=== PATIENT | male | born 1990 ===

== ENCOUNTER 2018-11-09 21:21 | Emergency (ER) | payer SELFPAY ==
[2018-11-09 21:33] VITALS: RESP 18
--- NOTE | 2018-11-09 22:15 | ED PDOC ---
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 Patient states he was doing some heavy lifting at work and felt immediate pain to lower ribs with swelling. Patient states he was evaluated by the doctor at his job and prescribed Naproxen and Flexeril which he states he took and did not help. Pain worse with deep breaths. Denies nausea/vomiting, cough, shortness of breath, palpitations, abdominal pain. Past Medical History Reviewed: Historical Data, Nursing Documentation, Vital Signs Vital Signs: Last Vital Signs Temp 98.4 F 11/09/18 21:29 Pulse 69 11/09/18 21:29 Resp 18 11/09/18 21:29 BP 136/76 11/09/18 21:29 Pulse Ox 100 11/09/18 21:29 - Medical History PMH: No Chronic Diseases - Surgical History Surgical History: No Surg Hx - Family History Family History: States: No Known Family Hx - Home Medications Home Medications: Ambulatory Orders Medication Instructions Recorded oxyCODONE/Acetaminophen [Percocet 1 ea PO Q6 PRN #12 tab 11/10/18 5/325 mg Tab] - Allergies Allergies/Adverse Reactions: Allergies Allergy/AdvReac Type Severity Reaction Status Date / Time No Known Allergies Allergy Verified 11/09/18 21:29 Review of Systems ROS Statement: Except As Marked, All Systems Reviewed And Found Negative Musculoskeletal: Positive for: Other (rib pain) Physical Exam - Reviewed Nursing Documentation Reviewed: Yes Vital Signs Reviewed: Yes - Physical Exam Appears: Positive for: Well, Non-toxic, Uncomfortable Head Exam: Positive for: ATRAUMATIC, NORMAL INSPECTION, NORMOCEPHALIC Cardiovascular/Chest: Positive for: Regular Rate, Rhythm. Negative for: Chest Non Tender (tender to palpate left anterior inferior ribs; no edema, ecchymosis, flail chest noted) Respiratory: Positive for: Normal Breath Sounds Gastrointestinal/Abdominal: Positive for: Normal Exam, Bowel Sounds, Soft. Negative for: Tenderness Back: Positive for: Normal Inspection Extremity: Positive for: Normal ROM Neurologic/Psych: Positive for: Alert, Oriented (x3) - ECG O2 Sat by Pulse Oximetry: 100 - Other Rad xray left ribs/chest X-Ray: Viewed By Me, Read By Radiologist X-Ray Interpretation: left 6th rib fx - Progress ED Course And Treament: -Toradol IM -Percocet PO -left chest/ribs Patient educated on findings (via [employer] preboarder #[id number]), discharged with rx Percocet Incentive spirometer given with instructions on use by Respiratory therapist Advised follow up PMD within 2-3 days Return precautions given Disposition - Clinical Impression Clinical Impression: Left rib fracture - Patient ED Disposition Is Patient to be Admitted: No Counseled Patient/Family Regarding: Studies Performed, Diagnosis, Need For F ollowup, Rx Given - Disposition Referrals: [facility] [Outside] Disposition: Routine/Home Disposition Time: 00:07 Condition: IMPROVED Prescriptions: oxyCODONE/Acetaminophen [Percocet 5/325 mg Tab] 1 ea PO Q6 PRN #12 tab PRN Reason: Pain, Severe (8-10) Instructions: Rib Fractures in Adults Forms: [employer] ([place]), [facility] ED School/Work Excuse Print Language: UKRAINIAN
[2018-11-09] MEDS ORDERED: Oxycodone/Acetaminophen 5/325 mg Tab ONE (22:35)
[2018-11-09] MEDS: Oxycodone/Acetaminophen 5/325 mg Tab PO ONE (22:35)
[2018-11-10 01:07] VITALS: BP 118/82; PULSE 61; TEMP 97.8; O2SAT 97
--- NOTE | 2018-11-10 16:54 | RAD ---
Date of service: 11/09/2018 PROCEDURE: Radiographs of the Chest and Left Ribs. HISTORY: left rib pain, SOB COMPARISON: None available. TECHNIQUE: Frontal radiograph of the chest and multiple oblique radiographs of the left ribs were obtained. FINDINGS: LEFT RIBS: No fracture or focal lesion visualized. LUNGS: Clear. PLEURA: No pneumothorax or pleural fluid. CARDIOVASCULAR: Normal cardiac size. No pulmonary vascular congestion. No aortic atherosclerotic calcification present OTHER FINDINGS: None. IMPRESSION: Unremarkable radiographs of the chest and left ribs. No left rib fracture. The preliminary findings for this examination were reported by [facility] at 11:49 p.m. on 11/09/2018. There is discordance of this report with the preliminary findings.
== END 2018-11-10 00:30 | disposition home or self-care (01) ==
LOC: H.ER 21:21
DX: S22.32XA Fracture of one rib, left side, initial encounter for closed fracture (principal); X50.0XXA Overexertion from strenuous movement or load, initial encounter; Y99.0 Civilian activity done for income or pay
CPT/HCPCS: 71101; 96372; 99283; J1885